=== PATIENT | female | born 1960 | race Two or more races ===

== ENCOUNTER → 2019-04-24 17:46 | Outpatient (CLI) | payer OTHER | END | disposition home or self-care (01) | LOC: RAD 17:46 | DX: M16.12 Unilateral primary osteoarthritis, left hip (principal); M25.551 Pain in right hip; Z76.89 Persons encountering health services in other specified circumstances ==

== ENCOUNTER → 2019-08-01 | Outpatient (CLI) | payer OTHER ==
[~2019-08-01] MED LIST: ACETAMINOPHEN500 M1 PO; MOBIC7.5 MG PO; NASAL ALLERGY16.9 ML NASAL; [UNRECOGNIZED DRUG - OTHER] PO
== END | disposition home or self-care (01) ==
LOC: TOM 10:15 → RAD 11:00 → TOM 11:15
DX: M16.12 Unilateral primary osteoarthritis, left hip (principal); M25.551 Pain in right hip

== ENCOUNTER → 2019-08-05 09:25 | Outpatient (CLI) | payer OTHER | END | disposition home or self-care (01) | LOC: LAB 09:25 | DX: D64.89 Other specified anemias (principal); E88.89 Other specified metabolic disorders; D68.8 Other specified coagulation defects; N39.0 Urinary tract infection, site not specified; I49.8 Other specified cardiac arrhythmias; Z22.322 Carrier or suspected carrier of Methicillin resistant Staphylococcus aureus; E55.9 Vitamin D deficiency, unspecified; M81.8 Other osteoporosis without current pathological fracture; E56.1 Deficiency of vitamin K; M85.88 Other specified disorders of bone density and structure, other site ==

== ENCOUNTER 2019-08-15 09:15 | Inpatient (IN) | payer OTHER ==
[~2019-08-15] VITALS: Ht 167.6 cm; Wt 86.2 kg
[~2019-08-15 09:15] MED LIST changes: -NASAL ALLERGY16.9 ML NASAL; -[UNRECOGNIZED DRUG - OTHER] PO
[2019-08-15] MEDS ORDERED: [UNRECOGNIZED DRUG - OTHER] PO (12:00)
[2019-08-15] MEDS ORDERED: NASAL ALLERGY16.9 ML NASAL (12:01)
== END 2019-08-22 19:57 | DRG 470 ==
LOC: SURG 08-19 05:30 → O/R 08-19 05:30 → SURH 08-19 09:15 → SURG 08-19 13:41
PROVIDERS: ADMIT Orthopaedic Surgery
PROC: 0SRB0J9 Replacement of Left Hip Joint with Synthetic Substitute, Cemented, Open Approach (ICD-10-PCS; principal; 2019-08-19 13:45)
DX: M16.12 Unilateral primary osteoarthritis, left hip (principal)

== ENCOUNTER → 2019-09-30 | Outpatient (CLI) | payer OTHER ==
[~2019-09-30] MED LIST changes: +NASAL ALLERGY16.9 ML NASAL; +[UNRECOGNIZED DRUG - OTHER] PO
== END | disposition home or self-care (01) ==
LOC: RAD 16:14
DX: M77.11 Lateral epicondylitis, right elbow (principal); M25.511 Pain in right shoulder; M25.512 Pain in left shoulder; M54.5 Low back pain